=== PATIENT | male | born 1965 | race Caucasian/White ===

== ENCOUNTER 2024-08-04 21:24 | Emergency (ER) | payer OTHER, SELFPAY ==
[2024-08-04 21:28] VITALS: BP 180/100
[2024-08-04 23:32] VITALS: BP 168/88
--- NOTE | 2024-08-05 00:28 | ED.GENMED ---
History of Present Illness
General
Chief Complaint: Chest Problem
Time Seen by Provider: 08/05/24 00:05
History of Present Illness
History of Present Illness:
HPI: The patient states that he had a CAT scan of his abdomen pelvis at [facility] earlier this morning and the PA that ordered it recommended he comes to the emergency department for evaluation of the possibility of a pneumothorax seen
on the left side. However the patient has had no chest pain or shortness of breath. He went to work earlier in the evening and had no symptoms.
EXAM:
GENERAL: Well appearing in no distress
HEENT: Moist oral mucosa
CARDIOVASCULAR: No murmurs, normal heart rate, regular rhythm, No chest wall tenderness
PULMONARY: No respiratory distress, breath sounds are clear and equal, no evidence for pneumothorax
ABDOMEN: Soft with no peritoneal signs, no tenderness
NEUROLOGIC: Excellent strength all extremities, no coordination deficits
PSYCHIATRIC: Appropriate mental status, normal insight and judgement
EXTREMITIES: Nontender, no edema, moves all extremities equally
SKIN: No rash, no lesions
TIME OF INITIAL ENCOUNTER: 12 AM
NUMBER AND COMPLEXITY OF PROBLEMS ADDRESSED AT THE ENCOUNTER
� Chronic conditions affecting care: Has had DVT in the past, BPH, renal cancer and has had urinary retention
� Acute Exacerbation and/or Progression of Chronic Illness: This is an acute problem
� Differential Diagnosis includes: The patient is asymptomatic but he was evaluated for the possibly of a pneumothorax
AMOUNT AND/OR COMPLEXITY OF DATA TO BE REVIEWED AND ANALYZED
� I performed an independent evaluation of and my interpretation is:
EKG:
CT:
X-rays:
Laboratory Studies:
Other:
� Review of other/old records: The patient was seen here in 2020 with urinary retention
� Clinical information was obtained by an independent historian: I spoke to the at bedside
� Prescriptions/Medications Considered but not given:
� Further testing considered but not performed:
RISK OF COMPLICATIONS AND/OR MORBIDITY OR MORTALITY OF PATIENT MANAGEMENT
� Social determinants of health affecting care: I personally viewed chest x-ray and see no clear acute abnormality that would be consistent with pneumothorax
� Discussion with other providers:
� Escalation of care including admission/observation vs risk of discharge considered: I considered CT imaging of the chest for further evaluation however given the unnecessary radiation risks and the fact that he is asymptomatic,
I recommend against this. His physical examination is unremarkable.
Past History
Past History
ED Past Medical History: Cancer (right kidney)
ED Past Surgical History: Urological (partial nephrectomy 2017) and Other
Phy Exam
Physical Exam
Physical Exam:
See HPI
Course
Orders/Labs/Results
Orders:
Orders
08/04/24 22:00
CXR2 [CR Chest - 2 Views ] Urgent
Comment:
Reason For Exam: concern for pneumothorax per patients doctor
Vital Signs
Initial and Last Documented VS:
Initial Vital Signs
Temp Pulse Resp BP Pulse Ox
97.8 F 70 24 180/100 96
08/04/24 21:28 08/04/24 21:28 08/04/24 21:28 08/04/24 21:28 08/04/24 21:28
Last Documented Vital Signs
Temp Pulse Resp BP Pulse Ox
97.8 F 74 24 168/88 98
08/04/24 21:28 08/04/24 23:32 08/04/24 23:32 08/04/24 23:32 08/05/24 00:10
*Critical Care Note
Total Time (30-74mins, 75-104mins- exclusive of procedures): Not Applicable
ED Attending Note
-
Portions of this chart may have been created with voice recognition software.� Occasional wrong word or��sound alike� substitutions may have occurred due to the inherent limitations of voice recognition software.
Discharge Plan
Departure
Patient Disposition: Home (Routine Discharge)
Date of Disposition: 08/05/24
Time of Disposition: 00:27
Patient with high blood pressure during this ER visit?: Yes
Discharge Problem:
Encounter for medical assessment
Instructions: BLOOD PRESSURE
Prescriptions:
No Action
rivaroxaban [Xarelto] 10 MG tablet
10 mg PO DAILY Qty: 45 0RF
Referrals:
Henri Diaz, DO [Family Provider] -
Activity Restrictions/Additional Instructions:
I currently do not see any signs [facility]. The radiologist will read in the morning. Since you have no symptoms I recommend against any CAT scan imaging at this time. The CAT scan show much more detail than an
x-ray would. However typically if someone has a clinically significant pneumothorax, there is generally associated symptoms and something seen on chest x-ray. Return here if worse or any other concerns. Your breath sounds are clear and equal and
I do not hear any suggestion of pneumothorax on physical examination and her ox levels are excellent at 98%.
Interventions
Interventions:
*Risk Screen - Suicide Last Done: 08/04/24 21:25
*Neglect/Abuse Screening Last Done: 08/04/24 21:28
ED- Fall Risk Assessment Last Done: 08/05/24 00:10
ED- Cardiac Assessment Last Done: 08/05/24 00:10
ED- Pulmonary Assessment Last Done: 08/05/24 00:10
Discharge Date and Time
Print Language: YI
[2024-08-05 00:42] VITALS: BP 132/65
== END 2024-08-05 00:43 | disposition home or self-care (01) ==
LOC: EMR 21:24
PROVIDERS: EMERGENCY PHYSICIAN Emergency Medicine; FAMILY PHYSICIAN Family Medicine
DX: Z04.89 Encounter for examination and observation for other specified reasons (principal); Z85.528 Personal history of other malignant neoplasm of kidney; Z90.5 Acquired absence of kidney
CPT/HCPCS: 99283; 71046